=== PATIENT | female | born 1955 | race Caucasian/White ===

== ENCOUNTER → 2019-12-15 | Outpatient (CLI) | payer MEDICARE, OTHER ==
--- NOTE | 2019-12-15 11:35 | RAD ---
Examination: MRI of the right knee without contrast HISTORY: History of anteromedial knee pain COMPARISON: None available TECHNIQUE: Multiplanar, multisequence MR imaging of the right knee was performed without contrast. FINDINGS: The anterior cruciate ligament, posterior cruciate ligament appear intact. There is increased signal identified in the inferior aspect of the posterior horn of the medial meniscus with a multiloculated cystic structure measuring 4.3 cm extending posterior to the medial meniscus likely paramenisceal cyst or ganglion cyst. The lateral meniscus appears intact. The medial collateral ligament is intact.. Mild increased T2 signal identified about the medial collateral ligament. Lateral collateral ligamentous complex including the fibular collateral ligament, biceps femoris tendon, popliteus tendon appear intact. Small knee joint effusion. The medial retinaculum, lateral retinaculum appear intact. Deep fissuring of cartilage identified in the medial compartment. Mild superficial fraying of cartilage identified in the lateral, patellofemoral compartment. IMPRESSION: 1. Increased signal identified in the inferior aspect of the posterior horn of the medial meniscus likely tear with a multiloculated cystic structure measuring 4.3 cm extending posterior to the medial meniscus likely paramenisceal cyst or ganglion cyst. 2. Grade II chondromalacia medial compartment. Grade I chondromalacia lateral, patellofemoral compartments. 3. Tricompartmental degenerative changes most in the medial compartment. 4.. Grade 1 sprain medial collateral ligament. Electronically signed by: Jonathan Bains MD (12/15/2019 11:32 AM) [place] [id number]
== END | disposition home or self-care (01) ==
LOC: MRI 11:24
PROVIDERS: ATTEND Physician Assistant Medical
DX: S83.411A Sprain of medial collateral ligament of right knee, initial encounter (principal); M17.11 Unilateral primary osteoarthritis, right knee; M25.461 Effusion, right knee; M22.41 Chondromalacia patellae, right knee; X58.XXXA Exposure to other specified factors, initial encounter; Y93.89 Activity, other specified; Y92.89 Other specified places as the place of occurrence of the external cause; Y99.8 Other external cause status
CPT/HCPCS: 73721

== ENCOUNTER → 2020-08-22 | Outpatient (CLI) | payer MEDICARE, OTHER ==
[~2020-08-22] MED LIST: LEVO75TA5 PO; LISI20TA18 PO
== END ==
LOC: LAB 13:25
PROVIDERS: ATTEND Orthopaedic Surgery
DX: Z01.812 Encounter for preprocedural laboratory examination (principal); S83.241D Other tear of medial meniscus, current injury, right knee, subsequent encounter; Z96.651 Presence of right artificial knee joint; Z20.822 Contact with and (suspected) exposure to COVID-19
CPT/HCPCS: U0003; U0005

== ENCOUNTER 2020-08-25 08:36 | Day surgery (SDC) | payer MEDICARE, OTHER ==
[~2020-08-25] VITALS: Ht 162.6 cm; Wt 62.1 kg
[~2020-08-25 08:36] MED LIST changes: +BUPIVACAINE-EPI 0.5% 30 ML VIAL KIT. ONE; +ceFAZolin SODIUM IV Push 1 GM VIAL. IVP PRN
[2020-08-25] MEDS ORDERED: SCOPOLAMINE 1.5MG PATCH. TD SCH (09:00)
[2020-08-25] MEDS ORDERED: IV RINGERS,LACTATED 1000ML 1,000 ML IV SCH (09:15)
[2020-08-25] MEDS ORDERED: ONDANSETRON PF 4 MG/2 ML VIAL. ONE (10:12)
[2020-08-25] MEDS ORDERED: LIDOCAINE 2% PF 5 ML VIAL. ONE (10:12)
[2020-08-25] MEDS ORDERED: PROPOFOL 10 MG/ML (20ML) VIAL. IV ONE (10:12)
[2020-08-25] MEDS ORDERED: DEXAMETHASONE SOD PHOS 4 MG/ML VIAL ONE (10:12)
[2020-08-25] MEDS ORDERED: fentaNYL PF VIAL 100 MCG/2 ML VIAL ONE (10:20)
[2020-08-25] MEDS ORDERED: SEVOFLURANE 31 TO 60 MINUTES. IH ONE (10:54)
[2020-08-25] MEDS ORDERED: HYDR-2765 PO (11:08)
--- NOTE | 2020-08-25 11:09 | DISCH ---
DISCHARGE INSTRUCTIONS Condition on Discharge Condition on Discharge: Stable Activity After Discharge Activity Instructions for Disc: Progressive ambulation Weight Bearing Status after Di: As tolerated Diet after Discharge Diet after Discharge: Regular Wound Incision Care Wound/Incision Care: Change dressing (May remove dressing in 2 days may then shower no soaking until sutures removed) Contacting the after DC Call your doctor for: Concerns you may have (Call if severe calf swelling not resolving with elevation and calf tenderness) Follow-Up Follow up with: Dr. Monge or Joelle 10 days AVA MONGE MD Aug 25, 2020 11:09
[2020-08-25] MEDS ORDERED: HYDROcodone/APAP 7.5/325MG 1 TAB TABLET PO ONE (11:45)
[2020-08-25 11:52] VITALS: BP 155/69
--- NOTE | 2020-08-25 19:40 | PDOC4 ---
Operative Note Operative Note Date of surgery: 08/25/2020 Preoperative diagnosis: Right knee medial meniscus tear Postoperative diagnosis: Same with free edge lateral meniscus tear and chondral fraying of medial facet patella Operative procedure: Right knee arthroscopy partial medial and lateral meniscectomy chondroplasty patella Surgeon: Mariposa Braille Typist: Blue swann assist Anesthesia: General Estimated blood loss: 5 cc Complications: None Operative indications: Please see my orthopedic clinic note for detailed operative indications and note that she had knee pain with medial joint line tenderness exacerbated by Falguni's testing and MRI showing a medial meniscus tear. I had gone over with her the structure and function of the meniscus and the operative rationale for removal of the damaged portion. I emphasized that I could not undo any degenerative changes present in the knee and we would deal with those symptomatically in an ongoing fashion as well as possible. And she could continue to have pain as well as potential operative complications of infection nerve or blood vessel damage medical or other anesthetic complications among others. She agrees to proceed with surgical evaluation and treatment Operative text: Patient was identified procedure verified patient placed in the supine position on the operating table. After adequate amounts of general anesthesia were administered the right lower extremity was prepped and draped in standard sterile fashion with a thigh tourniquet. After timeout was performed patient procedure identified and verified the right lower extremity was exsan guinated by Esmarch bandage tourniquet inflated to 250 mmHg a lateral portal was established medial portal established using spinal needle localization and the knee joint was systematically examined. She was noted to have some multiple small loose cartilaginous fragments in the gutters and suprapatellar pouch which were evacuated with the arthroscopic shaver. She had loose fronds of cartilage from grade III chondromalacia over the central facet of the patella which were trimmed down to stable fragments with the arthroscopic shaver. She was noted to have an unstable bulbous fragment in the body area of the medial meniscus which was readily flipped in and out of the joint and was trimmed back to stable tissue using the arthroscopic shaver. She also had displaceable tear of the posterior horn and root areas of the medial meniscus which was trimmed back to stable tissue with the arthroscopic punch and shaver to a stable rim of tissue. ACL was probed and found to be intact she did have tearing of the free edge of the lateral meniscus which was trimmed back to stable tissue with the arthroscopic punch and shaver affecting approximately 15% of the medial rim of the meniscus. Total affected tissue on the posterior horn area of the medial meniscus was probably 60% of the meniscus substance. Lateral compartment cartilage was relatively well-preserved while she had grade III-IV chondromala sade and isolated areas in the area of the previous tear of the body of the medial meniscus. Any loose cartilage fragments were removed with the arthroscopic shaver joint was evacuated of fluid portals closed with nylon suture fat pad and portal areas were infused with half percent Marcaine with epinephrine sterile dressings were applied toes were noted be warm pink following deflation of tourniquet patient was returned to recovery room in stable condition having tolerated procedure well. Blue swann assist was present for the procedure and assisted in prepping draping positioning closure and dressings AVA LOUIE MD Aug 25, 2020 19:40
== END 2020-08-25 12:33 | disposition home or self-care (01) ==
LOC: SURG 08:36
PROVIDERS: ATTEND Orthopaedic Surgery
DX: S83.241A Other tear of medial meniscus, current injury, right knee, initial encounter (principal); S83.281A Other tear of lateral meniscus, current injury, right knee, initial encounter; M94.261 Chondromalacia, right knee; I10 Essential (primary) hypertension; M19.90 Unspecified osteoarthritis, unspecified site; E03.9 Hypothyroidism, unspecified; Z98.51 Tubal ligation status; Z98.890 Other specified postprocedural states; Z87.891 Personal history of nicotine dependence; Z79.899 Other long term (current) drug therapy; X58.XXXA Exposure to other specified factors, initial encounter; Y93.89 Activity, other specified; Y92.89 Other specified places as the place of occurrence of the external cause; Y99.8 Other external cause status
CPT/HCPCS: 29880; A4930; J0690; J1100; J2405; J2704; J3010; A6454